=== PATIENT | male | born 1965 | race African-American/Black ===

== ENCOUNTER 2022-11-17 19:59 | Emergency (ER) | payer BC ==
[2022-11-17 20:14] VITALS: BMI 32.1
[2022-11-17 20:38] LABS: BASO % 0.6 % (0-2.0); EOS % 0.9 % (0-4.5); HEMATOCRIT 35.9 % (35.4-49); HEMOGLOBIN 12.3 GM/dL (11.7-16.9); LYMPH % 27.8 % (8-40); MCH 24.5 pg (25.7-33.7); MCHC 34.2 g/dl (32.0-35.9); MEAN CELL VOLUME 71.5 fl (80-96); MEAN PLT VOLUME 9.3 fl (7.5-11.1); MONO % 7.1 % (3.8-10.2); NEUT % 63.6 % (42.8-82.8); PLATELET COUNT 110 10^3/uL (134-434); RBC 5.02 M/mm3 (4.00-5.60); WHITE BLOOD COUNT 7.7 K/mm3 (4.0-10.0)
[2022-11-17 20:44] LABS: INR 1.14 (0.83-1.09); PROTHROMBIN TIME (PATIENT) 13.2 SEC (9.7-13.0)
[2022-11-17 20:47] LABS: ACTIVATED PTT 30.3 SECONDS (25.2-36.5)
[2022-11-17 20:51] LABS: ALBUMIN 4.5 g/dl (3.4-5.0); CALCIUM 9.5 mg/dL (8.5-10.1)
[2022-11-17 20:52] LABS: BLOOD UREA NITROGEN 17.5 mg/dL (7-18)
[2022-11-17 20:55] LABS: CREATININE 0.8 mg/dL (0.55-1.3)
[2022-11-17 20:56] LABS: TOT PROT 7.4 g/dl (6.4-8.2)
[2022-11-17 21:11] LABS: ANISOCYTOSIS 2+; MACROCYTOSIS 1+; TARGET CELLS 1+; TEAR DROP CELLS 1+
[2022-11-17 21:12] LABS: PLATELET ESTIMATE DECREASED
[2022-11-17] MEDS ORDERED: LIDOCAINE 5% TOPICAL PATCH TP ONE (21:27)
[2022-11-17] MEDS ORDERED: LIDOCAINE PATCH REMOVAL MC SCH (22:00)
[2022-11-17] MEDS ORDERED: LIDOCAINE 5% TOPICAL PATCH ONE (22:37)
[2022-11-17] MEDS ORDERED: SODIUM CHLORIDE 0.9% 500 ML INFUS.BAG IV ONE (23:08)
[2022-11-18 01:04] VITALS: PULSE 75; RESP 18; TEMP 97.5
[2022-11-18 01:21] VITALS: BP 162/94
== END 2022-11-18 01:22 | disposition home or self-care (01) ==
LOC: JER 19:59
DX: R07.89 Other chest pain (principal); M25.512 Pain in left shoulder
CPT/HCPCS: 36415; 71045-TC-FY; 71275-TC; 73030-TC-LT-FY; 74174-TC; 80053; 84484; 85025; 85610; 85730; 93005; 93010; 99285-25; Q9967